=== PATIENT | female | born 1950 | race Caucasian/White ===

== ENCOUNTER 2017-11-30 12:24 | Day surgery (SDC) | payer MEDICARE, OTHER ==
[~2017-11-30] VITALS: Ht 152.4 cm; Wt 82.7 kg
[~2017-11-30 12:24] MED LIST: ASPI-1265 PO; CYCL-394 PO; IMD30T PO; LEVO112T61 PO; LOP25T PO; NITR0.4T51 SL
[2017-11-30] MEDS ORDERED: MIDAZolam 5mg/5ml vial ONE (12:44)
[2017-11-30] MEDS ORDERED: fentaNYL/PF 50MCG/1 ML 2ML syringe ONE (12:44)
[2017-11-30] MEDS ORDERED: LIDOcaine Viscous 15ml cup ONE (12:44)
[2017-11-30] MEDS ORDERED: LOSA100T15 PO (12:57)
[2017-11-30] MEDS ORDERED: NAPR220T67 PO (12:57)
[2017-11-30 12:58] VITALS: BP 148/56
[2017-11-30] MEDS ORDERED: LACT1CAP65 PO (12:58)
[2017-11-30 13:53] VITALS: BP 152/75
[2017-11-30 14:03] VITALS: BP 153/53
[2017-11-30 14:13] VITALS: BP 138/60
[2017-11-30 14:23] VITALS: BP 128/56
== END 2017-11-30 14:45 | disposition home or self-care (01) ==
LOC: GI LAB 12:24
PROVIDERS: ATTEND Internal Medicine Gastroenterology
DX: K29.50 Unspecified chronic gastritis without bleeding (principal); K44.9 Diaphragmatic hernia without obstruction or gangrene; K20.9 Esophagitis, unspecified; I10 Essential (primary) hypertension; M19.90 Unspecified osteoarthritis, unspecified site; F10.10 Alcohol abuse, uncomplicated; M79.7 Fibromyalgia; Z79.82 Long term (current) use of aspirin; Z87.891 Personal history of nicotine dependence; Z79.899 Other long term (current) drug therapy; Z98.890 Other specified postprocedural states; Z82.49 Family history of ischemic heart disease and other diseases of the circulatory system; Z83.3 Family history of diabetes mellitus
CPT/HCPCS: 43239; J2250; J3010; J7030; 99152; A4620

== ENCOUNTER 2019-08-30 18:14 | Emergency (ER) | payer MEDICARE, OTHER ==
[~2019-08-30] VITALS: Ht 152.4 cm; Wt 86.4 kg
[~2019-08-30 18:14] MED LIST changes: +LACT1CAP65 PO; +LOSA100T57 PO; +NAPR220T67 PO
[2019-08-30 18:56] LABS: CLARITY,URINE SLIGHTLY CLOUDY (Clear); COLOR,URINE YELLOW (Yellow); GLUCOSE, URINE NEGATIVE (Neg); KETONES,URINE 15 mg/dl (Neg); LEUKOCYTE ESTERASE ,URINE NEGATIVE (Neg); NITRITES, URINE NEGATIVE (Neg); OCCULT BLOOD,URINE LARGE (Neg); PH,URINE 5.5 (4.8-8.0); PROTEIN,URINE NEGATIVE (Neg); UA COLLECTION TYPE CLN CATCH MIDSTREAM; UROBILINOGEN,URINE 0.2 E.U/dL (0.2-1.0)
[2019-08-30 18:58] LABS: BASOPHILS % (AUTO) 0.4 % (0-1); EOSINOPHILS % (AUTO) 0.2 % (0-6); HEMATOCRIT 43.9 % (35.0-45.0); HEMOGLOBIN 14.4 g/dl (12.0-16.0); LYMPHOCYTES # (AUTO) 1.1 X10'3 (1.1-4.8); LYMPHOCYTES % (AUTO) 9.4 % (21-51); MEAN CORPUSCULAR HEMOGLOBIN 32.2 PG (27.0-31.0); MEAN CORPUSCULAR HGB CONC 32.9 g/dL (33.0-36.5); MEAN CORPUSCULAR VOLUME 97.8 FL (78-98); MEAN PLATELET VOLUME 9.4 FL (7.4-10.4); MONOCYTES # (AUTO) 0.8 X10'3 (0-0.9); NEUTROPHILS # (AUTO) 9.3 X10'3 (1.8-7.7); PLATELET COUNT 251 X10'3 (140-440); RED BLOOD COUNT 4.49 X10'6 (4.20-5.60); RED CELL DISTRIBUTION WIDTH 13.2 % (11.5-14.5); WHITE BLOOD COUNT 11.2 X10'3 (4.5-11.0)
[2019-08-30 19:08] LABS: ALBUMIN 4.1 G/DL (3.4-5.0); ANION GAP 10 (8-16); BILIRUBIN,TOTAL 0.6 MG/DL (0.1-1.0); BLOOD UREA NITROGEN 23 MG/DL (7-18); CALCIUM 9.5 MG/DL (8.5-10.1); CHLORIDE 103 MMOL/L (99-107); CREATININE 1.21 MG/DL (0.40-0.90); GLUCOSE 141 MG/DL (70-104); POTASSIUM 4.4 MMOL/L (3.5-5.1); SODIUM 141 MMOL/L (135-145); TOTAL CARBON DIOXIDE 27.8 MMOL/L (24-32); TOTAL PROTEIN 8.1 G/DL (6.4-8.2); eGFR 44 ML/MIN
[2019-08-30 19:09] LABS: ALANINE AMINOTRANSFERASE 30 U/L (12-78); ALKALINE PHOSPHATASE 151 IU/L (46-116); ASPARTATE AMINO TRANSFERASE 24 U/L (10-37); LIPASE 123 U/L (73-393)
[2019-08-30 19:09] LABS: BACTERIA,URINE NONE SEEN /HPF (Neg); RBC,URINE 50-100 /HPF (0-2); SQUAMOUS EPITHELIAL CELL,UR MODERATE /LPF (FEW); WBC,URINE NONE SEEN /HPF (0-4)
[2019-08-30] MEDS ORDERED: normal saline 1000ML IV soln IVB ONE (19:40)
[2019-08-30] MEDS: ondansetron/PF 4mg/2ml inj IV ONE ×2 (20:27→20:29)
[2019-08-30] MEDS ORDERED: metoprolol tartrate 50mg tablet PO ONE (20:40)
--- NOTE | 2019-08-30 20:40 | NUR ---
INFORMED DR PACHECO ON BP AND THAT PATIENT HAS KAUR. PT STATED SHE HAD NOT TAKEN HER NIGHTLY BP MEDS. NEW ORDERS RECIEVED PRISCILLA CONTINUE TO MONITOR
[2019-08-30 20:59] VITALS: BP 200/96
== END 2019-08-30 21:02 | disposition home or self-care (01) ==
LOC: ER 18:14
DX: N23 Unspecified renal colic (principal); R11.10 Vomiting, unspecified; I10 Essential (primary) hypertension; E03.9 Hypothyroidism, unspecified; M19.90 Unspecified osteoarthritis, unspecified site; Z87.891 Personal history of nicotine dependence; Z79.82 Long term (current) use of aspirin; Z79.899 Other long term (current) drug therapy
CPT/HCPCS: 36415; 74176; 80053; 81001; 83690; 85025; 99284; J7030; J2405